=== PATIENT | male | born 1965 | race African-American/Black ===

== ENCOUNTER 2019-03-20 19:54 | Inpatient (IN) ==
[2019-03-20] MEDS ORDERED: ASPIRIN CHEW 81 MG TABLET PO STA ×2 (20:23→23:56)
[2019-03-20] MEDS ORDERED: FAMOTIDINE 20 MG/2 ML VIAL IV STA (20:23)
[2019-03-20] MEDS ORDERED: METOPROLOL TARTRATE 5 MG/5 ML VIAL IV STA (20:23)
[2019-03-20 20:47] LABS: Basophils % 0.6 % (0.0-0.8); Eosinophils # 0.1 10*3/uL (0.0-0.87); Eosinophils % 2.2 % (0.00-10.9); Hematocrit 45.4 VOL% (42.0-52.0); Hemoglobin 14.7 GM/DL (14.0-18.0); Immature Granulocytes % 0.2 %; Immature Granulocytes Absolute 0.01 #; Lymphocytes % 32.1 % (21.2-54.2); Mean Corpuscular HGB Conc 32.4 GM/DL (32-36); Mean Corpuscular Volume 81.9 FL (87-102); Mean Platelet Volume 9.6 FL (9.6-12.0); Monocytes % 7.6 % (1.7-12.7); Neutrophils % 57.3 % (38.7-73.9); Platelet Count 234 T/CUMM (130-400); Red Blood Count 5.54 MC/CUMM (3.8-5.5); Red Cell Distribution Width 13.2 % (9.3-17.3); White Blood Count 6.3 T/CUMM (4-12)
[2019-03-20 21:01] LABS: INR 1.1; PT Patient Result 11.6 SECS (9.6-12.2); Partial Thromboplastin Time 26.8 SECS (20.8-36.0)
[2019-03-20 21:15] LABS: Alanine Aminotransferase 28 U/L (16-61); Albumin 3.6 G/DL (3.4-5.0); Alkaline Phosphatase 44 U/L (45-117); Aspartate Amino Transferase 16 U/L (0-37); Blood Urea Nitrogen 16 MG/DL (7-18); Calcium 9.4 MG/DL (8.5-10.1); Estimated Glom Filtration Rate 68 ML/MIN; Glucose 136 MG/DL (74-106); Osmolality,Calculated 279.5 MOS/KG (273-304); Total Protein 7.4 G/DL (6.4-8.3)
[2019-03-20 21:16] LABS: Troponin I 0.142 NG/ML (0.00-0.045)
[2019-03-20] MEDS ORDERED: CLOPIDOGREL 300 MG TABLET PO STA (23:56)
[2019-03-20] MEDS ORDERED: ENOXAPARIN 30 MG/0.3 ML SYRINGE SUBCUT STA (23:56)
[2019-03-21] MEDS ORDERED: ONDANSETRON 4 MG/2 ML VIAL IM STA (00:04)
[2019-03-21] MEDS ORDERED: MORPHINE 4 MG/1 ML VIAL IV STA (00:04)
[2019-03-21] MEDS ORDERED: METOPROLOL TARTRATE 5 MG/5 ML VIAL IV STA (00:04)
[2019-03-21] MEDS ORDERED: MORPHINE 4 MG/1 ML VIAL IV PRN (00:52)
[2019-03-21] MEDS ORDERED: DEXTROSE 50% 25 GM/50 ML SYRINGE IV PRN ×2 (00:52→00:57)
[2019-03-21] MEDS ORDERED: ONDANSETRON 4 MG/2 ML VIAL IV PRN (00:52)
[2019-03-21] MEDS ORDERED: GLUCAGON 1 MG VIAL IM PRN ×2 (00:52→00:57)
[2019-03-21] MEDS ORDERED: SODIUM CHLORIDE 0.9% 1,000 ML IV SCH (01:00)
[2019-03-21] MEDS ORDERED: ENOXAPARIN 100 MG/ML SYRINGE SUBCUT SCH (01:00)
[2019-03-21 02:46] LABS: Basophils % 0.6 % (0.0-0.8); Eosinophils # 0.2 10*3/uL (0.0-0.87); Eosinophils % 2.4 % (0.00-10.9); Hematocrit 46.3 VOL% (42.0-52.0); Hemoglobin 14.9 GM/DL (14.0-18.0); Immature Granulocytes % 0.3 %; Immature Granulocytes Absolute 0.02 #; Lymphocytes # 2.2 10*3/uL (1.4-4.0); Lymphocytes % 34.9 % (21.2-54.2); Mean Corpuscular HGB Conc 32.2 GM/DL (32-36); Mean Corpuscular Volume 82.8 FL (87-102); Mean Platelet Volume 9.5 FL (9.6-12.0); Monocytes % 9.8 % (1.7-12.7); Platelet Count 252 T/CUMM (130-400); Red Blood Count 5.59 MC/CUMM (3.8-5.5); Red Cell Distribution Width 13.3 % (9.3-17.3); White Blood Count 6.3 T/CUMM (4-12)
[2019-03-21 03:03] LABS: Calcium 9.1 MG/DL (8.5-10.1); Osmolality,Calculated 285.1 MOS/KG (273-304)
[2019-03-21] MEDS: INSULIN REGULAR 100 UNIT/ML SUBCUT SCH ×3 (03:04→11:53)
[2019-03-21 07:31] LABS: Risk Ratio 3.83; VLDL CHOLESTEROL 21.8 MG/DL
[2019-03-21] MEDS ORDERED: carvediloL 25 MG TABLET PO SCH (08:00)
[2019-03-21] MEDS ORDERED: GABAPENTIN 300 MG CAPSULE PO SCH (09:00)
[2019-03-21] MEDS ORDERED: SACUBITRIL VALSARTAN PO SCH (09:00)
[2019-03-21] MEDS ORDERED: ASPIRIN EC 81 MG TABLET PO SCH (09:00)
[2019-03-21] MEDS ORDERED: LOSARTAN 50 MG TABLET PO SCH (09:00)
[2019-03-21] MEDS ORDERED: SACUBITRIL/VALSARTAN 49-51 MG TABLET PO SCH (09:00)
[2019-03-21] MEDS ORDERED: PANTOPRAZOLE 40 MG TABLET PO SCH (09:00)
[2019-03-21] MEDS: ISOSORBIDE MONONITRATE 20 MG TABLET PO SCH ×2 (09:11→15:13)
[2019-03-21] MEDS: hydrALAZINE 25 MG TABLET PO SCH ×2 (09:11→15:13)
[2019-03-21] MEDS ORDERED: POTASSIUM CHLORIDE RIDER 10 MEQ in PREMIX 1 EACH IV PRN (10:11)
[2019-03-21] MEDS ORDERED: DIAZEPAM 5 MG TABLET PO ONE ×2 (10:11)
[2019-03-21] MEDS ORDERED: diphenhydrAMINE CAP 25 MG CAPSULE PO ONE ×2 (10:11)
[2019-03-21] MEDS ORDERED: MAGNESIUM SULF RIDER 2 GM in PREMIX 1 EACH IV PRN (10:11)
[2019-03-21] MEDS ORDERED: LIDOCAINE 1% 20 ML VIAL ONE (10:12)
[2019-03-21] MEDS ORDERED: HEPARIN/NACL 0.9% 2 UNITS/ML 1,000 ML IV ONE (10:12)
[2019-03-21] MEDS ORDERED: fentaNYL 100 MCG/2 ML VIAL ONE (10:42)
[2019-03-21] MEDS ORDERED: MIDAZOLAM 2 MG/2 ML VIAL ONE (10:42)
[2019-03-21] MEDS ORDERED: ACETAMINOPHEN/CODEINE 300-30 MG TABLET PO PRN (11:31)
[2019-03-21] MEDS ORDERED: ACETAMINOPHEN 325 MG TABLET PO PRN (11:31)
[2019-03-21 14:16] VITALS: BP 116/71
[2019-03-21] MEDS ORDERED: ROSUVASTATIN 20 MG TABLET PO SCH (21:00)
== END 2019-03-21 15:28 | disposition home or self-care (01) | DRG 287 ==
LOC: N.ED 19:54 → N.EDINP 03-21 00:52 → N.TELES 03-21 02:15
PROVIDERS: ADMIT Hospitalist; ATTEND Hospitalist
PROC: CLCCHCL (ICD-10-PCS; 2019-03-21 11:15)